=== PATIENT | female | born 1995 | race African-American/Black ===

== ENCOUNTER 2017-03-14 17:19 | Emergency (ER) | payer OTHER ==
[2017-03-14 17:26] VITALS: TEMP 98.6; BMI 20.7
[2017-03-14] MEDS ORDERED: ONDANSETRON 4 MG/2 ML VIAL IVPUSH ONE (18:21)
[2017-03-14] MEDS ORDERED: SODIUM CHLORIDE 0.9% 1000 ML INFUS.BAG IV ONE (18:22)
[2017-03-14] MEDS ORDERED: ONDANSETRON 4 MG/2 ML VIAL ONE (18:42)
[2017-03-14 18:49] LABS: BASOPHIL 0.6 % (0-2.0); EOSINOPHIL 3.7 % (0-4.5); MCHC 32.2 g/dl (32.0-36.0); MEAN PLT VOLUME 8.2 fl (7.5-11.1); NEUTROPHILS 43.2 % (42.8-82.8); PLATELET COUNT 242 K/MM3 (134-434); RDW 15.2 % (11.6-15.6); WHITE BLOOD COUNT 4.3 K/mm3 (4.0-10.0)
[2017-03-14 19:34] LABS: URINE APPEARANCE CLOUDY; URINE BILIRUBIN NEGATIVE (NEGATIVE); URINE BLOOD 2+ (NEGATIVE); URINE COLOR DKYELLOW; URINE GLUCOSE (UA) NEGATIVE (NEGATIVE); URINE KETONE 2+ (NEGATIVE); URINE NITRITE NEGATIVE (NEGATIVE); URINE UROBILINOGEN NEGATIVE mg/dL (0.2-1.0)
--- NOTE | 2017-03-14 19:40 | PDOC ---
History of Present Illness - General History Source: Patient Exam Limitations: No Limitations - History of Present Illness Initial Comments: 03/14/17 19:40 The patient is a 21 year old female, with no significant past medical history, who presents to the emergency department complaining of abdominal pain since yesterday. Patient reports the pain is localized suprapubically. She reports associated nausea and vomiting, but denies any diarrhea or constipation. Patient reports her last bowel was 2 days ago. She reports her LMP was about 1 month ago. Patient admits she is sexually active. She denies any dysuria, hematuria, frequency, or urgency. She endorses a headache, but denies any fever , chills, dizziness, or lightheadedness. She denies any recent travel or sick contacts. Allergies: NKDA Past Surgical History: None reported Social History: Non smoker. No ETOH or recreational drug use. <Zeke Landry - Last Filed: 03/14/17 22:27> - General History Source: Patient Exam Limitations: No Limitations <Modesta Nelson - Last Filed: 03/14/17 23:09> - General Chief Complaint: Pain Stated Complaint: abd pain/vomiting Time Seen by Provider: 03/14/17 18:22 Past History <Zeke Landry - Last Filed: 03/14/17 22:27> - Past Medical History Other medical history: denies - Reproductive History Is Patient Now?: No - Suicide/Smoking/Psychosocial Hx Smoking History: Never smoked Hx Alcohol Use: No Drug/Substance Use Hx: No Substance Use Type: None <Modesta Nelson - Last Filed: 03/14/17 23:09> - Past Medical History Allergies/Adverse Reactions: Allergies Allergy/AdvReac Type Severity Reaction Status Date / Time No Known Allergies Allergy Verified 03/14/17 17:26 Home Medications: Ambulatory Orders NK [No Known Home Medication] 03/14/17 Review of Systems - Review of Systems Able to Perform ROS?: Yes Comments:: 03/14/17 19:40 GENERAL/CONSTITUTIONAL: No fever or chills. No weakness. HEAD, EYES, EARS, NOSE AND THROAT: No change in vision. No ear pain or discharge. No sore throat. CARDIOVASCULAR: No chest pain or shortness of breath. RESPIRATORY: No cough, wheezing, or hemoptysis. GASTROINTESTINAL: Yes abdominal pain, nausea, vomiting. No diarrhea or constipation. GENITOURINARY: No dysuria, frequency, or change in urination. MUSCULOSKELETAL: No joint or muscle swelling or pain. No neck or back pain. SKIN: No rash NEUROLOGIC: Yes headache. No vertigo, loss of consciousness, or change in strength/sensation. ENDOCRINE: No increased thirst. No abnormal weight change. HEMATOLOGIC/LYMPHATIC: No anemia, easy bleeding, or history of blood clots. ALLERGIC/IMMUNOLOGIC: No hives or skin allergy. <Zeke Landry - Last Filed: 03/14/17 22:27> *Physical Exam - Vital Signs Last Vital Signs Temp Pulse Resp BP Pulse Ox 98.6 F 85 19 129/75 100 03/14/17 17:24 03/14/17 17:24 03/14/17 17:24 03/14/17 17:24 03/14/17 17:24 - Physical Exam Comments: 03/14/17 19:41 GENERAL: Awake, alert, and fully oriented, in no acute distress HEAD: No signs of trauma EYES: PERRLA, EOMI, sclera anicteric, conjunctiva clear ENT: Auricles normal inspection, hearing grossly normal, nares patent. Moist mucosa NECK: Normal ROM, supple, no lymphadenopathy, JVD, or masses LUNGS: Breath sounds equal, clear to auscultation bilaterally. No wheezes, and no crackles HEART: Regular rate and rhythm, normal S1 and S2, no murmurs, rubs or gallops ABDOMEN: Mild epigastric and suprapubic tenderness, but no guarding or rebound. Soft, normoactive bowel sounds. No masses BACK: No CVA tenderness. EXTREMITIES: Normal range of motion, no edema. No clubbing or cyanosis. No cords, erythema, or tenderness. DP/PT pulses 2+ and symmetric. NEUROLOGICAL: Moves all extremities. Normal speech, normal gait SKIN: Warm, Dry, normal turgor, no rashes or lesions noted. <Zeke Landry - Last Filed: 03/14/17 22:27> - Vital Signs Last Vital Signs Temp Pulse Resp BP Pulse Ox 98.6 F 85 19 129/75 100 03/14/17 17:24 03/14/17 17:24 03/14/17 17:24 03/14/17 17:24 03/14/17 17:24 <Modesta Nelson - Last Filed: 03/14/17 23:09> ED Treatment Course - LABORATORY CBC & Chemistry Diagram: 03/14/17 18:22 03/14/17 18:22 - ADDITIONAL ORDERS Additional order review: Laboratory Results 03/14/17 18:22 Urine HCG, Qual Positive 03/14/17 18:22 RBC 4.41 MCV 84.0 MCHC 32.2 RDW 15.2 MPV 8.2 Neutrophils % 43.2 Lymphocytes % 38.7 Monocytes % 13.8 H Eosinophils % 3.7 Basophils % 0.6 - RADIOLOGY Radiograph Interpretation: 03/14/17 22:27 EXAM: Obstetrical US INTERPRETED BY: Dr. Thompson REVIEWED BY: Dr. Nelson IMPRESSION: Single viable intrauterine gestation at approximately 6 weeks 0 days. No sonographic abnormality is identified. - Medications Given in the ED: ED Medications Discontinued Medications Generic Name Dose Route Start Last Admin Trade Name Freq PRN Reason Stop Dose Admin Ondansetron HCl 4 mg 03/14/17 18:21 03/14/17 18:42 Zofran Injection IVPUSH 03/14/17 18:22 4 mg ONCE ONE Administration Sodium Chloride 1,000 ml 03/14/17 18:22 03/14/17 18:43 Normal Saline - IV 03/14/17 18:23 1,000 ml ONCE ONE Administration <Zeke Landry - Last Filed: 03/14/17 22:27> - LABORATORY CBC & Chemistry Diagram: 03/14/17 18:22 03/14/17 18:22 - ADDITIONAL ORDERS Additional order review: Laboratory Results 03/14/17 18:22 Urine HCG, Qual Positive 03/14/17 18:22 RBC 4.41 MCV 84.0 MCHC 32.2 RDW 15.2 MPV 8.2 Neutrophils % 43.2 Lymphocytes % 38.7 Monocytes % 13.8 H Eosinophils % 3.7 Basophils % 0.6 - Medications Given in the ED: ED Medications Discontinued Medications Generic Name Dose Route Start Last Admin Trade Name Freq PRN Reason Stop Dose Admin Ondansetron HCl 4 mg 03/14/17 18:21 03/14/17 18:42 Zofran Injection IVPUSH 03/14/17 18:22 4 mg ONCE ONE Administration Sodium Chloride 1,000 ml 03/14/17 18:22 03/14/17 18:43 Normal Saline - IV 03/14/17 18:23 1,000 ml ONCE ONE Administration <Modesta Nelson - Last Filed: 03/14/17 23:09> Medical Decision Making - Medical Decision Making 03/14/17 19:36 21 yo f with no pmhx here with c/o n/v since yesterday. LMP 4 weeks ago. is sexually active. also c/o suprapubic abd pain. no urinary sxs. no change to stool. last bm yesterday. also c/o mild headache. no mod factors. has thrown up several times today, all onbloody, nonbilious. . no prior abd surgeries. on exam awake alert lungs clear heart rrr nomrg. abd soft mild suprapubic ttp. no rebound no guarding. ext wwp no edema. differential electrolyte abnormality, uti, gastritis pancreatitis. hypokalemia. plan iv hydration antiemeticds. labs ua ucg. reassess. 03/14/17 23:09 pt with 6 wks iup. labs unremarkable. still unable to tolerate po after zofran. will give dextrose and reglan. reassess. <Modesta Nelson - Last Filed: 03/14/17 23:09> *DC/Admit/Observation/Transfer - Attestations Scribe Attestion: 03/14/17 19:41 Documentation prepared by Zeke Landry, acting as medical technician for Modesta Nelson MD. <Zeke Landry - Last Filed: 03/14/17 22:27> - Discharge Dispostion Admit: No <Modesta Nelson - Last Filed: 03/14/17 23:09> Diagnosis at time of Disposition: - Discharge Dispostion Disposition: HOME Condition at time of disposition: Improved - Referrals Referrals: Nikhil Osborn MD [Staff Physician] - - Patient Instructions Printed Discharge Instructions: Common Discomforts and Bodily Changes During Additional Instructions: drink plenty of fluids. no motrin for pain only tylenol 500 mg every 8 hrs as needed for pain or headache. you should take a vitamin containing folate. follow up with a car top bolter. you can follow up with dr Razmzan if you do not have one. see referral information to call to schedule.
[2017-03-14 19:41] LABS: ALBUMIN 3.8 g/dl (3.4-5.0); ANION GAP 9 (8-16); CALCIUM 9.4 mg/dL (8.5-10.1); CO2 25 mmol/L (21-32); CREATININE 0.6 mg/dL (0.55-1.02); GLUCOSE,RANDOM 79 mg/dL (74-106); SGPT/ALT 16 U/L (12-78)
[2017-03-14 19:43] LABS: ALK PHOS 58 U/L (45-117); BILIRUBIN,TOTAL 0.8 mg/dL (0.2-1.0); TOT PROT 8.2 g/dl (6.4-8.2)
[2017-03-14 19:44] LABS: URINE PROTEIN 1+ (NEGATIVE)
[2017-03-14 19:48] LABS: SGOT/AST 29 U/L (15-37)
[2017-03-14 20:53] VITALS: PULSE 82
[2017-03-14 21:53] LABS: URINE LEUK ESTERASE Negative (NEGATIVE)
[2017-03-14] MEDS ORDERED: METOCLOPRAMIDE HCL INJECTION 10 MG/2 ML VIAL IVPB ONE (23:07)
[2017-03-14] MEDS ORDERED: METOCLOPRAMIDE HCL INJECTION 10 MG/2 ML VIAL ONE (23:07)
[2017-03-14] MEDS ORDERED: DEXTROSE 5%-0.45% SALINE 1,000 ML IV SCH (23:15)
[2017-03-15 01:00] VITALS: BP 121/77
== END 2017-03-15 01:17 | disposition home or self-care (01) ==
LOC: JER 17:19
PROC: 3E033GC Introduction of Other Therapeutic Substance into Peripheral Vein, Percutaneous Approach (ICD-10-PCS; principal; 2017-03-14)
PROC: 3E0337Z Introduction of Electrolytic and Water Balance Substance into Peripheral Vein, Percutaneous Approach (ICD-10-PCS; 2017-03-14)
DX: O26.899 Other specified pregnancy related conditions, unspecified trimester (principal); Z3A.00 Weeks of gestation of pregnancy not specified
CPT/HCPCS: 36415; 76801-TC; 80053; 81003; 81015; 83690; 84702; 84703; 85025; 87086; 99283-25

== ENCOUNTER 2017-09-25 08:20 | Inpatient (IN) | payer OTHER ==
[2017-09-25] MEDS ORDERED: DEXTROSE 5%-LACTATED RINGERS 1,000 ML IV ONE ×2 (08:53→23:10)
[2017-09-25] MEDS ORDERED: BETAMET ACET/BETAMET NA PH 30 MG/5 ML VIAL IM ONE ×2 (09:11→21:52)
[2017-09-25 09:38] LABS: BASO % 0.1 % (0-2.0); EOS % 0.9 % (0-4.5); HEMATOCRIT 30.9 % (32.4-45.2); HEMOGLOBIN 10.3 GM/dL (10.7-15.3); MCH 27.7 pg (25.7-33.7); MCHC 33.2 g/dl (32.0-36.0); MEAN CELL VOLUME 83.2 fl (80-96); MEAN PLT VOLUME 8.5 fl (7.5-11.1); MONO % 8.8 % (3.8-10.2); NEUT % 82.2 % (42.8-82.8); PLATELET COUNT 191 K/MM3 (134-434); RBC 3.71 M/mm3 (3.60-5.2); RDW 14.3 % (11.6-15.6); WHITE BLOOD COUNT 10.5 K/mm3 (4.0-10.0)
[2017-09-25 09:46] LABS: INR 1.02 (0.82-1.09); PROTHROMBIN TIME (PATIENT) 11.5 SEC (9.98-11.88)
[2017-09-25 09:49] VITALS: BMI 24.1
[2017-09-25 09:49] LABS: ACTIVATED PTT 29.3 SECONDS (26.9-34.4)
[2017-09-25] MEDS ORDERED: AMPICILLIN SODIUM 250 MG VIAL IVPUSH ONE (09:49)
[2017-09-25] MEDS ORDERED: AMPICILLIN - 2 GM in SODIUM CHLORIDE 100 ML IVPB ONE (10:00)
[2017-09-25] MEDS ORDERED: AMPICILLIN SODIUM 2 GM VIAL ONE (10:01)
[2017-09-25 10:02] LABS: ANION GAP 10 (8-16); BLOOD UREA NITROGEN 4 mg/dL (7-18); CHLORIDE 104 mmol/L (98-107); CO2 24 mmol/L (21-32); CREATININE 0.7 mg/dL (0.55-1.02); GLUCOSE,RANDOM 96 mg/dL (74-106); POTASSIUM 3.9 mmol/L (3.5-5.1); SODIUM 138 mmol/L (136-145)
--- NOTE | 2017-09-25 11:34 | HP ---
Past Medical History - Admission History of Present Illness: 22 yo @ 34 1/7 wks by first trimester ultrasound, EDC 11/05/2017 complicated by: - Umbilical hernia, asymptomatic - Recent fall with abdominal trauma, s/p evaluation on labor and delivery on 09/16 Upon initial evaluation she was noted to have contractions which resolved with IV fluids She underwent an ultrasound and prolonged monitoring and was discharged home with precautions - Unknown GBS - infant, last ultrasound 09/16 -4lb 8 oz; 2051 g; 41% Patient reports noting scant reddish discharge yesterday and mild abdominal cramping. She awoke this morning with worsening of abdominal pain and presented to labor and delivery for evaluation. She was found to have regular contractions and was 3 cm on cervical examination. She reports movement and denies leakage of fluid. History Source: Patient Limitations to Obtaining History: No Limitations - Past Medical History Cardiovascular: No: HTN Pulmonary: Yes: Asthma ...: 3 ...Para: 0 ...Term: 0 ...: 0 ...Spon : 0 ...Induced : 2 ...Multiple Gestation: 0 ...LMP: 01/28/17 ... Weeks Gestation by Dates: 34.1 ...EDC by Dates: 11/04/17 ...EDC by Sono: 11/04/17 Heme/Onc: No: Anemia - Past Surgical History Past Surgical History: Yes: None Hx Myomectomy: No Hx Transabdominal Cerclage: No - Smoking History Smoking history: Never smoked Have you smoked in the past 12 months: No - Alcohol/Substance Use Hx Alcohol Use: No History of Substance Use: reports: None - Social History ADL: Independent History of Recent Travel: No Home Medications - Allergies Allergies/Adverse Reactions: Allergies Allergy/AdvReac Type Severity Reaction Status Date / Time No Known Allergies Allergy Verified 03/14/17 17:26 - Home Medications Home Medications: Ambulatory Orders Ferrous Sulfate [Iron] 1 tab PO DAILY 09/16/17 Vit/Iron Fum/Folic AC [ Tablet] 1 tab PO DAILY 09/16/17 Family Disease History - Family Disease History Family History: Denies Review of Systems - Review of Systems Constitutional: reports: No Symptoms Cardiovascular: reports: No Symptoms Respiratory: reports: No Symptoms Gastrointestinal: reports: No Symptoms Genitourinary: reports: No Symptoms Musculoskeletal: reports: No Symptoms Integumentary: reports: No Symptoms Neurological: reports: No Symptoms Endocrine: reports: No Symptoms Hematology/Lymphatic: reports: No Symptoms Psychiatric: reports: No Symptoms Physical Exam - Maternity Vital Signs: Vital Signs Temperature 98.4 F 09/25/17 10:00 Pulse Rate 129 H 09/25/17 10:00 Respiratory Rate 18 09/25/17 10:00 Blood Pressure 127/73 09/25/17 10:00 O2 Sat by Pulse Oximetry (%) Constitutional: Yes: Well Nourished, No Distress, Calm Neck: Yes: Supple, Trachea Midline Cardiovascular: Yes: Regular Rate and Rhythm Lungs: Clear to auscultation - Abdominal Exam/OB Number of Fetuses: Single Presentation: Vertex Contractions: Yes Regularity: Regular Monitor Mode: External - Vaginal Exam/OB Dilatation (cm): 3 Effacement (%): 50 Amniotic Membrane Status: Intact Station: -3 - Physical Exam Edema: No Psychiatric: Yes: Alert, Oriented - Labs Lab Results: CBC, BMP 09/25/17 09:10 09/25/17 09:10 PNL: O positive; antibody negative; RPR NR; HBS Ag negative; HCV negative; HIV negative; Varicella immune; Rubella Immune; Parvo Immune; Hgele neg; GCT WNL; Quad screen negative Hemorrhage Risk Assessment - Risk Factors Medium Risk Factors: Yes: None High Risk Factors: Yes: None Risk Score: 1 Risk Level: Medium Risk Assessment/Plan 22 yo @ 34 wks labor 1. Admit to L&D 2. Routine labs collected and sent 3. Ampicillin for GBS unknown 4. Prematurity - will give BMZ x 1, will notify NICU 5. Will offer pain control at patient's request 6. Will continue to monitor
[2017-09-25] MEDS ORDERED: AMPICILLIN SODIUM 1 GM VIAL ONE (13:44)
[2017-09-25] MEDS: AMPICILLIN - 1 GM in SODIUM CHLORIDE 100 ML IVPB SCH ×3 (13:55→21:52)
--- NOTE | 2017-09-25 17:04 | PN ---
Ante-Partal Exam - Subjective Subjective: Patient reports mild pressure Vital Signs: Vital Signs Temperature 98.8 F 09/25/17 16:00 Pulse Rate 111 H 09/25/17 16:00 Respiratory Rate 18 09/25/17 16:00 Blood Pressure 119/83 09/25/17 16:00 O2 Sat by Pulse Oximetry (%) Bleeding: No Headache: No Visual changes: No Right upper quadrant pain: No - Contractions Contractions: Yes Regularity: Regular Intensity: Moderate Monitor Mode: External - Exam during Labor Heart Rate: 150 Category: I Monitor Decelerations: None Exam: Vaginal Dilatation (cm): 4 Effacement (%): 100 Amniotic Membrane Status: Intact Presentation: Vertex Station: -2 - Intrapartum Hemorrhage Risk Medium Risk Factors: None High Risk Factors: None Risk Score: 0 Risk Level: Low Risk - Assessment/Plan Assessment/Plan: 22 yo @ 34 wks, labor 1. Cervical changed noted will monitor 2. on ampicillin for GBS unkonwn 3. Pain well controlled 4. Will proceed with expectant management
[2017-09-25] MEDS ORDERED: PROMETHAZINE HCL 25 MG/1 ML VIAL ONE (20:43)
[2017-09-25] MEDS ORDERED: BUTORPHANOL TARTRATE 1 MG/ML VIAL ONE (20:43)
[2017-09-25] MEDS ORDERED: PROMETHAZINE HCL 25 MG/1 ML VIAL IVPUSH ONE (20:45)
[2017-09-25] MEDS ORDERED: BUTORPHANOL TARTRATE 1 MG/ML VIAL IVPUSH ONE (20:45)
[2017-09-26] MEDS: AMPICILLIN - 1 GM in SODIUM CHLORIDE 100 ML IVPB SCH ×5 (02:00→17:40)
[2017-09-26] MEDS ORDERED: PROMETHAZINE HCL 25 MG/1 ML VIAL IVPUSH ONE ×2 (02:40→15:43)
[2017-09-26] MEDS ORDERED: BUTORPHANOL TARTRATE 1 MG/ML VIAL IVPUSH ONE (02:40)
[2017-09-26] MEDS ORDERED: BUTORPHANOL TARTRATE 1 MG/ML VIAL ONE ×2 (02:40→17:57)
[2017-09-26] MEDS ORDERED: PROMETHAZINE HCL 25 MG/1 ML VIAL ONE ×2 (02:41→17:57)
--- NOTE | 2017-09-26 09:17 | PN ---
Ante-Partal Exam - Subjective Subjective: Patient comfortable without complaints slept well overnight Vital Signs: Vital Signs Temperature 98.5 F 09/26/17 06:00 Pulse Rate 103 H 09/26/17 09:00 Respiratory Rate 20 09/26/17 09:00 Blood Pressure 115/45 09/26/17 09:00 O2 Sat by Pulse Oximetry (%) Bleeding: No Headache: No Visual changes: No Right upper quadrant pain: No - Contractions Contractions: Yes Regularity: Irregular Monitor Mode: External - Exam during Labor Heart Rate: 140 Variability: Moderate Category: I Monitor Accelerations: Present Monitor Decelerations: None Exam: Vaginal Dilatation (cm): 5 Effacement (%): 100 Amniotic Membrane Status: Intact Presentation: Vertex Station: -1 - Intrapartum Hemorrhage Risk Medium Risk Factors: None High Risk Factors: None Risk Score: 0 Risk Level: Low Risk - Assessment/Plan Assessment/Plan: 22 yo @ 34 wks PTL 1. Stable exam, contractions now irregular and not painful 2. Will allow to have breakfast and will continue to monitor for signs of progression 3. Will continue ampicillin
--- NOTE | 2017-09-26 14:51 | PN ---
Progress Note (short form) - Note Progress Note: cx 6 cm, 80 vx -1 mi, fhr cat 1, irregular mild contractiomn. advised expected management
--- NOTE | 2017-09-26 15:41 | PN ---
Progress Note (short form) - Note Progress Note: had gross spont rom, clear . irregular contraction . advised pitocin
[2017-09-26] MEDS ORDERED: OXYTOCIN 20 UNITS in 0.9% NS 20 UNIT/1,000 ML INFUS.BAG IV ONE ×3 (15:43→20:33)
[2017-09-26] MEDS ORDERED: BUTORPHANOL TARTRATE 1 MG/ML VIAL IVPUSH PRN (15:43)
[2017-09-26] MEDS ORDERED: OXYTOCIN 15 UNITS/ LR 250 ML 15 UNIT/250 ML INFUS.BAG IVPB SCH (15:45)
[2017-09-26] MEDS ORDERED: OXYTOCIN 30 UNITS in 0.9% NS 30 UNIT/500 ML INFUS.BAG IVPB SCH (15:45)
[2017-09-26] MEDS ORDERED: LIDOCAINE HCL 1% PRESERVATIVE FREE - 30ML VIAL ONE (15:55)
[2017-09-26] MEDS ORDERED: PROMETHAZINE HCL 25 MG/1 ML VIAL IVPB ONE (16:00)
[2017-09-26] MEDS ORDERED: BUTORPHANOL TARTRATE 1 MG/ML VIAL IVPB ONE (16:00)
--- NOTE | 2017-09-26 17:57 | PN ---
Progress Note (short form) - Note Progress Note: cx 9cm 80 vx 0 fhr cat 1 wants pain meds , 1 mg stadol given
[2017-09-26] MEDS ORDERED: WITCH HAZEL 50% (TUCKS) 40 PAD/JAR PAD TP PRN (19:05)
[2017-09-26] MEDS ORDERED: ACETAMINOPHEN 325 MG TABLET (FP) PO PRN (19:05)
[2017-09-26] MEDS ORDERED: BENZOCAINE 20% 57 GM BOTTLE TP PRN (19:05)
[2017-09-26] MEDS ORDERED: OXYTOCIN 20 UNITS in 0.9% NS 20 UNIT/1,000 ML INFUS.BAG IV SCH (19:15)
[2017-09-26] MEDS ORDERED: IBUPROFEN 600 MG TABLET (FP) PO PRN (19:15)
[2017-09-26] MEDS ORDERED: D5W-LR W/ 20 UNITS OXYTOCIN 1,000 ML IV SCH (19:15)
[2017-09-26] MEDS ORDERED: BISACODYL 10 MG SUPP.RECT RC PRN (19:15)
[2017-09-26] MEDS ORDERED: BENZOCAINE 28 GM HEMORRHOIDAL OINTMENT TP PRN (19:15)
[2017-09-26] MEDS ORDERED: METHYLERGONOVINE MALEATE 0.2 MG/1 ML AMP IM PRN (19:16)
[2017-09-26 19:22] LABS: VENOUS PC02 43.4 mmHg (38-52); VENOUS PH 7.38 (7.32-7.42)
[2017-09-27] MEDS: AMPICILLIN - 1 GM in SODIUM CHLORIDE 100 ML IVPB SCH (00:12)
--- NOTE | 2017-09-27 06:37 | PN ---
Progress Note (short form) - Note Progress Note: ppd 1 doing well, no c/o CBC, BMP 09/25/17 09:10 09/25/17 09:10 Last Vital Signs Temp Pulse Resp BP Pulse Ox 97.9 F 111 H 20 125/78 09/26/17 21:30 09/26/17 21:30 09/26/17 21:30 09/26/17 21:30 abdomen soft, non tender , no cva lochia mild , no odor no calf tenderness plan ambulate, cbc
[2017-09-27 07:46] LABS: HEMATOCRIT 26.2 % (32.4-45.2); HEMOGLOBIN 8.6 GM/dL (10.7-15.3); LYMPH % 10.7 % (8-40); MCH 27.4 pg (25.7-33.7); MCHC 32.9 g/dl (32.0-36.0); MEAN CELL VOLUME 83.5 fl (80-96); MEAN PLT VOLUME 8.5 fl (7.5-11.1); MONO % 11.7 % (3.8-10.2); NEUT % 77.6 % (42.8-82.8); PLATELET COUNT 188 K/MM3 (134-434); RBC 3.14 M/mm3 (3.60-5.2); RDW 14.4 % (11.6-15.6); WHITE BLOOD COUNT 14.1 K/mm3 (4.0-10.0)
[2017-09-27] MEDS: FERROUS SO4 325 MG TABLET (FP) PO SCH ×2 (08:16→17:04)
--- NOTE | 2017-09-27 08:55 | DS ---
Physical Exam-ADVERTISING EDITOR Vital Signs: Vital Signs Temperature 97.9 F 09/26/17 21:30 Pulse Rate 111 H 09/26/17 21:30 Respiratory Rate 20 09/26/17 21:30 Blood Pressure 125/78 09/26/17 21:30 O2 Sat by Pulse Oximetry (%) Constitutional: Yes: Well Nourished, No Distress, Calm Eyes: Yes: WNL, Conjunctiva Clear, EOM Intact HENT: Yes: WNL, Atraumatic, Normocephalic Neck: Yes: WNL, Supple, Trachea Midline Cardiovascular: Yes: WNL, Regular Rate and Rhythm Respiratory: Yes: WNL, Regular, CTA Bilaterally Gastrointestinal: Yes: WNL ...Rectal Exam: Yes: WNL Renal/: Yes: WNL ....Post : Yes: Uterus firm, Uterus non-tender, Slight lochia rubra Breast(s): Yes: WNL Musculoskeletal: Yes: WNL Extremities: Yes: WNL Edema: No Integumentary: Yes: WNL Neurological: Yes: WNL, Alert, Oriented ...Motor Strength: WNL Psychiatric: Yes: WNL, Alert, Oriented Labs: CBC, BMP 09/27/17 07:00 09/25/17 09:10 Delivery - Delivery Vaginal Delivery: Spontaneous (no complication) Type of Anesthesia: None Episiotomy/Laceration: None EBL (cc): 300 Delivery, Single - Stages of Labor Date 1st Stage Initiatied: 09/25/17 Time 1st Stage Initiated: 06:00 Date 2nd Stage Initiated: 09/26/17 Time 2nd Stage Initiated: 18:45 Date of Delivery: 09/26/17 Time of Delivery: 18:53 Time Placenta Delivered: 18:55 Placenta: Yes: Spontaneous - Condition of Funeral Workers/Epic Ambulatory Analyst Present: Yes Name: Cassandra Granados Gender: Female Weight: 5 lb 4 oz Position: Left, OA Total Hours ROM (Hrs/Mins): 4h2min - 1 Minute Total Score: 8 5 Minutes Total Score: 9 - [place] Feeding Plan Initial Plan: Elected not to breastfeed exclusively throughout hospitalization Discharge Summary Reason For Visit: LABOR Procedures: Principal: Hospital Course: not complicated Condition: Good - Instructions Diet, Activity, Other Instructions: regular diet, no intercourse, folow up ofice 4 weeks Referrals: Nikhil Osborn MD [Staff Physician] - Disposition: HOME - Home Medications Comprehensive Discharge Medication List: Ambulatory Orders Ferrous Sulfate [Iron] 1 tab PO DAILY 09/16/17 Vit/Iron Fum/Folic AC [ Tablet] 1 tab PO DAILY 09/16/17 Ibuprofen [Motrin -] 600 mg PO TID #21 tablet 09/27/17
[2017-09-27] MEDS: PRENATAL VITAMINS W/ FOLIC ACID TABLET (FP) PO SCH (10:53)
[2017-09-27] MEDS ORDERED: SENNOSIDES/DOCUSATE COMBO (SENNA PLUS) TABLET (UD) PO PRN (22:00)
[2017-09-28] MEDS: FERROUS SO4 325 MG TABLET (FP) PO SCH (08:00)
--- NOTE | 2017-09-28 08:18 | PN ---
Progress Note (short form) - Note Progress Note: ppd 2 no c/o voids ok, no excess vaginal bleeding, no dizziness CBC, BMP 09/27/17 07:00 09/25/17 09:10 abdomen soft, uterus firm, non tender lochia mild no calf tenderness impression anemia, advised iron, vit Last Vital Signs Temp Pulse Resp BP Pulse Ox 97.7 F 80 20 117/72 09/27/17 21:39 09/27/17 21:39 09/27/17 21:39 09/27/17 21:39
[2017-09-28 09:44] VITALS: BP 117/76; PULSE 84; TEMP 97.8
[2017-09-28] MEDS: PRENATAL VITAMINS W/ FOLIC ACID TABLET (FP) PO SCH (11:38)
--- NOTE | 2017-10-01 13:18 | PATH ---
Surgical Pathology Report Patient Name: ROLANDO DOMINGUEZ Med. Rec. #: [id number] /Age/Gender: 1995 (Age: 22) / F Account: [id number] Location: [facility] OBS/INFORMATION OFFICER Taken: 09/26/2017 Received: 09/27/2017 Reported: 10/01/2017 Physicians: Nikhil Osborn M.D. Specimen(s) Received PLACENTA Clinical History , 34.2 weeks' gestation, 2 In Ab, labor/ delivery History of asthma (well controlled) Final Diagnosis PLACENTA, DELIVERY: 408 g THIRD TRIMESTER PLACENTA WITH TRIVASCULAR UMBILICAL CORD AND MODERATE TO SEVERE ACUTE CHORIOAMNIONITIS. Electronically Signed Raysa Connell M.D. Gross Description The specimen is received fresh labeled placenta and is a 408 gram, 18.0 x 15.0 x 2.7 cm. placenta with attached membranes and umbilical cord. The attached membranes are beaver, translucent and insert marginally. The umbilical cord measures 21 cm. in length and averages 1.2 cm. in diameter. The cord inserts eccentrically, 4.5 cm. to the nearest margin. No true knots or strictures are identified. Cut surface of the umbilical cord reveals 3 vessels. The surface is bingham blue with moderate fibrin deposition and appropriate caliber vessels. The maternal surface is red-brown with focal defects. Sectioning reveals red-brown, spongy parenchyma. No lesions are identified. Elementary Assistant Principal sections are submitted in three cassettes as follows: 1- membrane rolls and umbilical cord; 2-3- full thickness sections of placenta. /09/30/2017 [facility]09/30/2017
== END 2017-09-28 12:15 | disposition home or self-care (01) | DRG 775 ==
LOC: JDEL 08:20 → JLDR 08:45 → J3W 09-26 21:00
PROVIDERS: ADMIT Obstetrics & Gynecology; ATTEND Obstetrics & Gynecology
PROC: 10E0XZZ Delivery of Products of Conception, External Approach (ICD-10-PCS; principal; 2017-09-26)
DX: O60.14X0 Preterm labor third trimester with preterm delivery third trimester, not applicable or unspecified (principal); Z3A.34 34 weeks gestation of pregnancy; Z37.0 Single live birth
CPT/HCPCS: 36415; 59409; 80048; 82803; 85025; 85610; 85730; 86593; 86850; 86900; 86901; 88307-TC; 96372

== ENCOUNTER 2019-03-01 21:45 | Emergency (ER) | payer OTHER ==
[2019-03-01 22:23] VITALS: BP 122/70; PULSE 98; TEMP 98.3
--- NOTE | 2019-03-01 22:27 | PDOC ---
Attending Attestation - Resident Resident Name: Miguel Gaming - ED Attending Attestation I have performed the following: I have examined & evaluated the patient, The case was reviewed & discussed with the resident, I agree w/resident's findings & plan - HPI HPI: 03/02/19 01:04 Pt comes with hyperemesis gravidum; she is 7 weeks . This is her 2nd and she didn't have this with the last . She was given zofran by her OB and she is not feeling better. - Physicial Exam PE: 03/02/19 01:05 Agree with resident exam - Medical Decision Making 03/02/19 00:09 Labs are normal; pt is awaiting UA 03/02/19 01:05 K+ is 3.5. Pt will be encouraged to eat bananas and OJ. 03/02/19 01:07 UA is normal; pt has small ketones and she will be hydrated. 03/02/19 02:33 PO challenged; feeling better and ready to go home
[2019-03-01] MEDS ORDERED: SODIUM CHLORIDE 1,000 ML IV STA (22:48)
[2019-03-01 23:24] LABS: BASO % 0.1 % (0-2.0); EOS % 3.4 % (0-4.5); HEMATOCRIT 34.6 % (32.4-45.2); HEMOGLOBIN 11.2 GM/dL (10.7-15.3); LYMPH % 39.5 % (8-40); MCH 27.4 pg (25.7-33.7); MCHC 32.4 g/dl (32.0-36.0); MEAN CELL VOLUME 84.6 fl (80-96); MEAN PLT VOLUME 7.8 fl (7.5-11.1); MONO % 13.2 % (3.8-10.2); NEUT % 43.8 % (42.8-82.8); PLATELET COUNT 216 K/MM3 (134-434); RBC 4.09 M/mm3 (3.60-5.2); RDW 13.2 % (11.6-15.6); WHITE BLOOD COUNT 4.8 K/mm3 (4.0-10.0)
--- NOTE | 2019-03-01 23:32 | PDOC ---
History of Present Illness - General Chief Complaint: Nausea/Vomiting Stated Complaint: VOMITING/FEVER Time Seen by Provider: 03/01/19 22:25 - History of Present Illness Initial Comments: 03/01/19 23:42 23f 7 weeks by LMP presents to the ED for intractable vomiting for the past 2 weeks. Saw her OBGYN for it who prescribed her sublingual zofran which she claims didn't work at all. Hasn't been able to keep anything down. Denies fever, chills, dysuria, abdominal pain or vaginal discharge. Had much milder symptom during her first . Past History - Past Medical History Allergies/Adverse Reactions: Allergies Allergy/AdvReac Type Severity Reaction Status Date / Time No Known Allergies Allergy Verified 03/01/19 22:22 Home Medications: Ambulatory Orders Ferrous Sulfate [Iron] 1 tab PO DAILY 09/16/17 Vit/Iron Fum/Folic AC [ Tablet] 1 tab PO DAILY 09/16/17 Ibuprofen [Motrin -] 600 mg PO TID #21 tablet 09/27/17 Metoclopramide HCl [Reglan -] 10 mg PO QID #28 tablet 03/02/19 Asthma: Yes Cancer: No Cardiac Disorders: No COPD: No Diabetes: No HTN: No Seizures: No Thyroid Disease: No - Reproductive History Is Patient Now?: Yes - Suicide/Smoking/Psychosocial Hx Smoking History: Never smoked Have you smoked in the past 12 months: No Hx Alcohol Use: No Drug/Substance Use Hx: No Substance Use Type: None Hx Substance Use Treatment: No Review of Systems - Review of Systems Able to Perform ROS?: Yes Is the patient limited Bengali proficient: No Constitutional: No: Symptoms Reported HEENTM: No: Symptoms Reported Respiratory: No: Symptoms reported Cardiac (ROS): No: Symptoms Reported ABD/GI: Yes: See HPI : No: Symptoms Reported Musculoskeletal: No: Symptoms Reported Integumentary: No: Symptoms Reported Neurological: No: Symptoms reported All Other Systems: Reviewed and Negative *Physical Exam - Vital Signs Last Vital Signs Temp Pulse Resp BP Pulse Ox 98.3 F 98 H 18 122/70 100 03/01/19 22:22 03/01/19 22:22 03/01/19 22:22 03/01/19 22:22 03/01/19 22:22 - Physical Exam General Appearance: Yes: Nourished, Appropriately Dressed. No: Apparent Distress HEENT: positive: EOMI, MIKE, Normal ENT Inspection Respiratory/Chest: positive: Lungs Clear, Normal Breath Sounds. negative: Chest Tender, Respiratory Distress Cardiovascular: positive: Regular Rhythm, Regular Rate, S1, S2 Gastrointestinal/Abdominal: positive: Normal Bowel Sounds, Flat, Soft. negative : Tender Extremity: positive: Normal Capillary Refill, Normal Inspection, Normal Range of Motion Integumentary: positive: Normal Color, Dry, Warm Neurologic: positive: Fully Oriented, Alert, Normal Mood/Affect ED Treatment Course - LABORATORY CBC & Chemistry Diagram: 03/01/19 23:15 03/01/19 23:15 - ADDITIONAL ORDERS Additional order review: 03/01/19 23:15 RBC 4.09 MCV 84.6 MCHC 32.4 RDW 13.2 MPV 7.8 Neutrophils % 43.8 D Lymphocytes % 39.5 D Monocytes % 13.2 H Eosinophils % 3.4 D Basophils % 0.1 D Medical Decision Making - Medical Decision Making 03/02/19 00:00 Will give fluids, reglan and reassess. 03/02/19 01:05 Labs are all within normal limits. Patient's nausea better. Po challenge Ok to discharge with reglan Rx and follow up. *DC/Admit/Observation/Transfer Diagnosis at time of Disposition: Hyperemesis gravidarum - Discharge Dispostion Disposition: HOME Condition at time of disposition: Improved Decision to Admit order: No - Prescriptions Prescriptions: Metoclopramide HCl [Reglan -] 10 mg PO QID #28 tablet - Referrals - Patient Instructions Printed Discharge Instructions: DI for Hyperemesis Gravidarum Additional Instructions: Follow up with your OBGYN as planned on . Come back to the Emergency department for any new, worsening or concerning symptom. - Post Discharge Activity
[2019-03-01] MEDS ORDERED: METOCLOPRAMIDE HCL INJECTION 10 MG/2 ML VIAL IVPUSH ONE (23:39)
[2019-03-01] MEDS ORDERED: METOCLOPRAMIDE HCL INJECTION 10 MG/2 ML VIAL ONE (23:40)
[2019-03-01 23:50] LABS: ALBUMIN 3.7 g/dl (3.4-5.0); BILIRUBIN,TOTAL 0.4 mg/dL (0.2-1); BLOOD UREA NITROGEN 10.2 mg/dL (7-18); CALCIUM 8.8 mg/dL (8.5-10.1); CREATININE 0.7 mg/dL (0.55-1.3); TOT PROT 7.5 g/dl (6.4-8.2)
[2019-03-01 23:51] LABS: POTASSIUM 3.5 mmol/L (3.5-5.1)
[2019-03-02 00:22] LABS: EPI CELLS 28.9 /HPF (0-5/HPF); HYALINE CASTS 14 /lpf (0-8); URINE APPEARANCE CLOUDY; URINE BILIRUBIN NEGATIVE (NEGATIVE); URINE COLOR DK YELLOW; URINE GLUCOSE (UA) NEGATIVE (NEGATIVE); URINE KETONE TRACE (NEGATIVE); URINE LEUK ESTERASE NEGATIVE (NEGATIVE); URINE NITRITE NEGATIVE (NEGATIVE); URINE PROTEIN 1+ (NEGATIVE); URINE RBC 1 /hpf (0-4)
[2019-03-02 00:57] LABS: URINE WBC 16 /hpf (0-5)
[2019-03-02] MEDS ORDERED: POTASSIUM CHLORIDE TABS 20 MEQ TABLET.ER (FP) PO ONE ×2 (01:06→01:18)
[2019-03-02] MEDS ORDERED: PYRIDOXINE HCL 100 MG/1 ML VIAL IM ONE (22:49)
== END 2019-03-02 01:22 | disposition home or self-care (01) ==
LOC: JER 21:45
PROC: 3E0337Z Introduction of Electrolytic and Water Balance Substance into Peripheral Vein, Percutaneous Approach (ICD-10-PCS; principal; 2019-03-01)
PROC: 3E033GC Introduction of Other Therapeutic Substance into Peripheral Vein, Percutaneous Approach (ICD-10-PCS; 2019-03-01)
DX: O26.891 Other specified pregnancy related conditions, first trimester (principal); O21.0 Mild hyperemesis gravidarum; Z3A.01 Less than 8 weeks gestation of pregnancy
CPT/HCPCS: 36415; 80053; 81003; 85025; 87086; 99283-25; J7030

== ENCOUNTER 2020-12-12 07:15 | Inpatient (IN) | payer OTHER ==
[2020-12-12] MEDS: DEXTROSE 5%-LACTATED RINGERS 1,000 ML IV SCH (08:30)
[2020-12-12 08:53] LABS: INR 0.94 (0.83-1.09); PROTHROMBIN TIME (PATIENT) 11.6 SEC (9.7-13.0)
[2020-12-12 08:54] LABS: BASO % 0.3 % (0-2.0); EOS % 1.2 % (0-4.5); HEMATOCRIT 26.8 % (32.4-45.2); HEMOGLOBIN 8.4 GM/dL (10.7-15.3); LYMPH % 30.2 % (8-40); MCH 22.2 pg (25.7-33.7); MCHC 31.3 g/dl (32.0-36.0); MEAN CELL VOLUME 70.8 fl (80-96); MEAN PLT VOLUME 9.1 fl (7.5-11.1); NEUT % 52.3 % (42.8-82.8); PLATELET COUNT 164 10^3/uL (134-434); RBC 3.78 M/mm3 (3.60-5.2); RDW 17.3 % (11.6-15.6); WHITE BLOOD COUNT 4.7 K/mm3 (4.0-10.0)
[2020-12-12 08:55] LABS: ACTIVATED PTT 26.5 SECONDS (25.2-36.5)
[2020-12-12 08:56] VITALS: BMI 25.6
[2020-12-12 09:07] LABS: CALCIUM 8.7 mg/dL (8.5-10.1)
[2020-12-12 09:08] LABS: BLOOD UREA NITROGEN 8.1 mg/dL (7-18)
[2020-12-12 09:11] LABS: CREATININE 0.6 mg/dL (0.55-1.3)
[2020-12-12] MEDS ORDERED: OXYTOCIN 30 UNITS in 0.9% NS 30 UNIT/500 ML INFUS.BAG IVPB ONE (10:52)
[2020-12-12] MEDS ORDERED: OXYTOCIN 30 UNITS in 0.9% NS 30 UNIT/500 ML INFUS.BAG IVPB SCH (11:00)
[2020-12-12] MEDS ORDERED: FENTANYL/BUPIVACAINE/NS/PF - PCEA - 50 ML DISP.SYRIN EP ONE (15:44)
[2020-12-12] MEDS ORDERED: BUPIVACAINE HCL/PF 0.25% (2.5MG/ML) 10 ML VIAL ONE (15:59)
[2020-12-12] MEDS ORDERED: NALOXONE HCL 0.4 MG/ML VIAL IVPUSH PRN (16:29)
[2020-12-12] MEDS ORDERED: FENTANYL/BUPIVACAINE/NS/PF - PCEA - 50 ML DISP.SYRIN EP SCH (16:30)
[2020-12-12] MEDS ORDERED: OXYTOCIN 20 UNITS in 0.9% NS 20 UNIT/1,000 ML INFUS.BAG IV ONE (16:55)
[2020-12-12] MEDS ORDERED: BENZOCAINE 20% 57 GM BOTTLE TP PRN (17:21)
[2020-12-12] MEDS ORDERED: METHYLERGONOVINE MALEATE 0.2 MG/1 ML AMP IM PRN (17:21)
[2020-12-12] MEDS ORDERED: BISACODYL 10 MG SUPP.RECT RC PRN (17:21)
[2020-12-12] MEDS ORDERED: BENZOCAINE 28 GM HEMORRHOIDAL OINTMENT TP PRN (17:21)
[2020-12-12] MEDS ORDERED: WITCH HAZEL 50% (TUCKS) 40 PAD/JAR PAD TP PRN (17:21)
[2020-12-12] MEDS ORDERED: OXYTOCIN 20 UNITS in 0.9% NS 20 UNIT/1,000 ML INFUS.BAG IV SCH (17:30)
[2020-12-12] MEDS ORDERED: IBUPROFEN 600 MG TABLET (FP) PO ONE (17:37)
[2020-12-12] MEDS ORDERED: ACETAMINOPHEN 325 MG TABLET (FP) ONE (17:37)
[2020-12-12] MEDS ORDERED: PCA PUMP NR ONE (17:38)
[2020-12-12] MEDS: ACETAMINOPHEN 325 MG TABLET (FP) PO PRN (17:42)
[2020-12-12] MEDS: IBUPROFEN 600 MG TABLET (FP) PO PRN (17:45)
[2020-12-12] MEDS ORDERED: FERROUS SO4 325 MG TABLET (FP) ONE (17:48)
[2020-12-12] MEDS: FERROUS SO4 325 MG TABLET (FP) PO SCH (17:50)
[2020-12-13 08:36] LABS: BASO % 0.2 % (0-2.0); EOS % 0.6 % (0-4.5); HEMATOCRIT 25.8 % (32.4-45.2); HEMOGLOBIN 8.1 GM/dL (10.7-15.3); LYMPH % 18.1 % (8-40); MCH 22.2 pg (25.7-33.7); MCHC 31.4 g/dl (32.0-36.0); MEAN CELL VOLUME 70.9 fl (80-96); MEAN PLT VOLUME 8.8 fl (7.5-11.1); MONO % 14.6 % (3.8-10.2); NEUT % 66.5 % (42.8-82.8); PLATELET COUNT 166 10^3/uL (134-434); RBC 3.64 M/mm3 (3.60-5.2); RDW 17.4 % (11.6-15.6); WHITE BLOOD COUNT 6.6 K/mm3 (4.0-10.0)
[2020-12-13] MEDS: PRENATAL VITAMINS W/ FOLIC ACID TABLET (FP) PO SCH (09:36)
[2020-12-13] MEDS: FERROUS SO4 325 MG TABLET (FP) PO SCH ×3 (09:37→18:40)
[2020-12-13] MEDS ORDERED: FERROUS SO4 325 MG TABLET (FP) PO SCH (10:00)
[2020-12-13] MEDS: IBUPROFEN 600 MG TABLET (FP) PO PRN (14:15)
[2020-12-13] MEDS: ACETAMINOPHEN 325 MG TABLET (FP) PO PRN (14:15)
[2020-12-13 20:39] VITALS: TEMP 97.9
[2020-12-13] MEDS ORDERED: SENNOSIDES/DOCUSATE COMBO (SENNA PLUS) TABLET (UD) PO PRN (22:00)
[2020-12-14] MEDS: ACETAMINOPHEN 325 MG TABLET (FP) PO PRN ×2 (00:48→09:24)
[2020-12-14] MEDS: IBUPROFEN 600 MG TABLET (FP) PO PRN ×2 (00:48→09:24)
[2020-12-14] MEDS: FERROUS SO4 325 MG TABLET (FP) PO SCH ×2 (08:41→12:55)
[2020-12-14] MEDS: PRENATAL VITAMINS W/ FOLIC ACID TABLET (FP) PO SCH (09:24)
[2020-12-14] MEDS: DEXTROSE 5%-LACTATED RINGERS 1,000 ML IV SCH (11:10)
[2020-12-14 12:01] VITALS: BP 113/75; PULSE 80
== END 2020-12-14 13:00 | disposition home or self-care (01) | DRG 807 ==
LOC: JLDR 07:15 → J3W 19:56
PROVIDERS: ADMIT Obstetrics & Gynecology; ATTEND Obstetrics & Gynecology
PROC: 10E0XZZ Delivery of Products of Conception, External Approach (ICD-10-PCS; principal; 2020-12-12)
DX: O80 Encounter for full-term uncomplicated delivery (principal); Z37.0 Single live birth; Z3A.39 39 weeks gestation of pregnancy
CPT/HCPCS: 36415; 59409; 80048; 85025; 85610; 85730; 86780; 86850; 86900; 86901